=== PATIENT | male | born 1940 | race Caucasian/White ===

== ENCOUNTER 2017-03-12 06:22 | Inpatient (IN) | payer OTHER ==
[2017-02-12 08:12] VITALS: BMI 32.0
--- NOTE | 2017-02-12 08:47 | PAT Medication Instructions ---
Service Date Feb 12, 2017. Current Home Medication List Aspirin (Aspirin Adult Low Strengt), 81 MG PO QPM Carvedilol (Carvedilol), 25 MG PO BID Ferrous Gluconate (Ferrous Gluconate), 324 MG PO BID Furosemide (Lasix), 20 MG PO BID Gabapentin (Neurontin), 300 MG PO QAM PRN for prn Hydrocodone/Acetaminophen 5MG/325MG (Layton 5MG/325MG), 1 TABLET PO BID PRN for Pain Omeprazole (Prilosec), 20 MG PO QAM Quinapril Hcl (Accupril *), 20 MG PO BID Silodosin (Rapaflo), 1 CAP PO QPM Simvastatin (Zocor), 10 MG PO QPM Warfarin Sodium (Coumadin), 4 MG PO QPM Medication Instructions For Your Scheduled Surgery - Check with surgeon/prescribing physician for instructions: Warfarin Sodium (Coumadin), 4 MG PO QPM - Hold the following medications 48 hours prior to surgery: Furosemide (Lasix), 20 MG PO BID Ferrous Gluconate (Ferrous Gluconate), 324 MG PO BID Quinapril Hcl (Accupril *), 20 MG PO BID - Take the following medications the morning of surgery with a sip of water: Carvedilol (Carvedilol), 25 MG PO BID Gabapentin (Neurontin), 300 MG PO QAM PRN for prn (if needed) Hydrocodone/Acetaminophen 5MG/325MG (Layton 5MG/325MG), 1 TABLET PO BID PRN for Pain (okay to take up to 4 hours prior to surgery if needed) Omeprazole (Prilosec), 20 MG PO QAM - Hold the following medications the night before surgery: Quinapril Hcl (Accupril *), 20 MG PO BID - Take the following medications as scheduled the night before surgery: Simvastatin (Zocor), 10 MG PO QPM Silodosin (Rapaflo), 1 CAP PO QPM Gabapentin (Neurontin), 300 MG PO QAM PRN for prn (if needed) Furosemide (Lasix), 20 MG PO BID Ferrous Gluconate (Ferrous Gluconate), 324 MG PO BID Aspirin (Aspirin Adult Low Strengt), 81 MG PO QPM Hydrocodone/Acetaminophen 5MG/325MG (Layton 5MG/325MG), 1 TABLET PO BID PRN for Pain (if needed) If you have any questions please call us at [phone] or [phone] or [phone]
--- NOTE | 2017-02-12 09:19 | DIAGNOSTIC IMAGING REPORT ---
CHEST PREADMISSION(PA/LAT) HISTORY: 76 years-old Male preadmission exam. COMPARISON: Portable chest radiograph 12/06/2014 TECHNIQUE: PA and lateral views of the chest FINDINGS: Cardiac silhouette is mildly enlarged, unchanged. There is mild atherosclerosis of the aorta without pneumothorax, pleural effusion or focal airspace consolidation. No overt pulmonary edema. Nodular opacity at the level of the right lung base suggests nipple shadow. The bones are mildly demineralized. Left shoulder hemiarthroplasty noted. Prior median sternotomy. Cholecystectomy clips are present. Posterior trudy and screw fusion of the thoracolumbar spine is partially imaged. Multilevel degenerative changes of the spine are seen. IMPRESSION: No acute cardiopulmonary process. The above report was generated using voice recognition software. It may contain grammatical, syntax or spelling errors. Electronically signed by: Kang Hernandez M.D. 02/12/2017 9:18 AM Dictated Date/Time: 02/12/2017 9:16 AM
[2017-02-12 09:52] LABS: INR 1.6 (0.9-1.1); PARTIAL THROMBOPLASTIN RATIO 1.4; PROTHROMBIN TIME (PATIENT) 17.3 SECONDS (9.0-12.0)
[2017-02-12 10:26] LABS: BUN/CREATININE RATIO 21.7 (10-20); CREATININE 1.4 mg/dl (0.60-1.40); POTASSIUM 4.4 mmol/L (3.5-5.1)
[2017-02-12 10:40] LABS: HEMATOCRIT 41.8 % (42-52); MEAN CELL VOLUME 96.3 fL (80-100); MEAN CORPUSCULAR HEMOGLOBIN 32.5 pg (25-34); MEAN CORPUSCULAR HGB CONC 33.7 g/dl (32-36); MEAN PLATELET VOLUME 12.3 fL (7.4-10.4); PLATELET COUNT 88 K/uL (130-400); RED BLOOD COUNT 4.34 M/uL (4.7-6.1); WHITE BLOOD COUNT 4.87 K/uL (4.8-10.8)
[2017-02-12 10:41] LABS: BASO ABS # 0.05 K/uL (0-0.2); COMPLETE YES; EOS % 2.5 %; IG% 0.2 %; LYMPH % 32.2 %; LYMPH ABS # 1.57 K/uL (1.2-3.4); MONO % 12.3 %; NEUT % 51.8 %; PLT ESTIMATE DECREASED
--- NOTE | 2017-03-08 08:25 | HISTORY & PHYSICAL EXAMINATION ---
DATE OF ADMISSION: 03/12/2017 CHIEF COMPLAINT: Bilateral knee pain and discomfort, left side greater than right. HISTORY OF PRESENT ILLNESS: The patient is a 76-year-old gentleman from [place] who has got a long history of bilateral knee pain and discomfort. He is a retired [employer] employee. He has been treated with extensive conservative care over the years including medicines and injections. The shots have not helped recently at all. He does have a history of multiple back surgeries as well and continues to be bothered by back pain. He describes chronic pain in both knees. The left side is worse than the right. The more he walks, the more it hurts. He limps all day but worse worse as the day goes on. He gets swelling in both knees. He would like to have his left knee replaced. PAST MEDICAL HISTORY: 1. Hypertension. 2. Elevated cholesterol. 3. Atrial fibrillation on Coumadin. 4. Congestive heart failure. 5. Gastroesophageal reflux disease. 6. History of melanoma 7. BPH. PAST SURGICAL HISTORY: Include: 1. Back surgery x5. 2. Cholecystectomy. 3. Shoulder surgery. ALLERGIES: None. CURRENT MEDICINES: 1. Aspirin 81 mg daily. 2. Carvedilol 25 mg twice a day. 3. Quinapril 20 mg twice a day. 4. Simvastatin 10 mg a day. 5. Omeprazole 20 mg a day. 6. Iron 325 twice a day. 7. Coumadin 4 mg a day. 8. Rapaflo 8 mg a day for BPH. 9. Furosemide 20 mg twice a day. 10. Gabapentin 300 mg. 11. Hydrocodone 2 a day for his back. SOCIAL HISTORY: A 76-year-old male. He is from [place]. He is . FAMILY HISTORY: Noncontributory. REVIEW OF SYSTEMS: Significant cardiac history including atrial fibrillation on Coumadin. He also has a history of heart failure. He is followed by Dr. Calero. FAMILY HISTORY: No history of DVT or PE. PHYSICAL EXAMINATION: GENERAL: Physical examination reveals is a pleasant elderly male. He looks to be in reasonably good health. HEAD, EYES, EARS, NOSE, AND THROAT EXAMINATION: Benign. NECK: Supple. No lymphadenopathy. LUNGS: Clear to auscultation. HEART: Has an irregularly irregular rhythm. No murmurs. ABDOMEN: Soft, nontender, nondistended. EXTREMITY EXAMINATION: Grossly neurovascularly intact except as follows: Examination of both knees reveals the patient walks with a waddling gait. He has varus alignment to both knees. He has got bony hypertrophy medially. Range of motion is pretty symmetrically about 5 degrees short of full extension and 20 degrees of flexion. He has got some mild edema in both legs. No pain with hip motion. X-RAYS: X-rays of both knees reveal advanced bilateral knee DJD. He has got complete loss of his medial joint space. The left side is a bit worse than the right. ASSESSMENT: A 76-year-old male with advanced bilateral knee degenerative joint disease, unresponsive to conservative treatment. He has had multiple back surgeries and also some underlying cardiac disease. He is strongly desiring to have his knees replaced. PLAN: We are going to take him to the operating room and do a left total knee replacement. The risks and benefits of this procedure were explained to the patient including but not limited to DVT, PE, , infection, neurological injury, neurovascular injury, bleeding problem, pain, limited range of motion, stiffness, failure to relieve his symptoms, incomplete relief of symptoms, need for further surgery in the future, fracture, leg length inequality, nerve palsy, etc. The patient understands and desires to proceed. Informed consent was obtained. He has stopped his Coumadin 5 days preop, hold the quinapril the morning of surgery. He will take his carvedilol the morning surgery. We will need stat PT and INR the a.m. of surgery. We will likely have one of the cardiologists here follow him in the hospital. He is hoping to be discharged to home using [facility] with his 's assistance.
[~2017-03-12] VITALS: Ht 172.7 cm; Wt 95.5 kg
[2017-03-12] VITALS (16 sets, daily range): BP systolic 109–130; BP diastolic 53–87; PULSE 73–93; TEMP 36.5–36.8; O2SAT 95–100; Ht 172.7 cm; Wt 95.5 kg
[~2017-03-12 06:22] MED LIST: ACC10 PO; ACETAMINOPHEN 500 MG TAB PO SCH; ASPI-321 PO; BUPIVACAINE LIPOSOME 266 MG, BUPIVACAINE/EPINEPHRINE INJ 50 ML, SODIUM CHLORIDE 0.9% PF... INFIL SCH; CEFAZOLIN 2000 MG/60 ML D5W 60 ML IV SCH; CRG25 PO; FAMOTIDINE 20 MG TAB PO SCH; FERR325T18 PO; FURO-85 PO; GABA-113 PO; GABAPENTIN 300 MG CAP PO SCH; HYDR-5688 PO; LACTATED RINGER'S 1000ML 1,000 ML IV SCH; LACTATED RINGER'S 1000ML 500 ML IV ONE; LACTATED RINGER'S 1000ML IV SCH; METOCLOPRAMIDE HCL 10 MG TAB PO SCH; PRLSR20 PO; SCOPOLAMINE 1.5 MG TDSY TD SCH; SILO8CAP PO; SIMV10TA2 PO; TRANEXAMIC ACID INJ 1,000 MG in SODIUM CHLORIDE 0.9% 100ML 100 ML IV SCH; WARF2TAB PO
[2017-03-12] MEDS ORDERED: MIDAZOLAM HCL 1 MG/ML 2ML VIAL ONE (06:24)
[2017-03-12] MEDS ORDERED: LIDOCAINE HCL 2% 2 ML VIAL (20MG/ML) ONE (06:24)
[2017-03-12] MEDS ORDERED: FENTANYL CITRATE INJ 50 MCG/1 ML 2 ML VIAL ONE ×2 (06:24→08:41)
[2017-03-12] MEDS ORDERED: ONDANSETRON INJ 2 MG/ML 2 ML VIAL ONE (06:24)
[2017-03-12] MEDS ORDERED: PROPOFOL IV EMULSION 10 MG/ML 20 ML VIAL IV ONE ×2 (06:24→08:36)
[2017-03-12] MEDS ORDERED: BUPIVACAINE 0.5 % 5 MG/1 ML PF 10ML VIAL ONE (06:31)
[2017-03-12] MEDS ORDERED: BUPIVACAINE 0.25% 30 ML VIAL ONE (06:31)
--- NOTE | 2017-03-12 06:47 | History & Physical Bridge Note ---
H&P Re-Evaluation Bridge Note: I have examined the patient, reviewed the History & Physical and in the interval since the performance of the History & Physical I have noted the following changes of clinical significance: No changes noted
[2017-03-12] MEDS ORDERED: FENTANYL CITRATE INJ 50 MCG/1 ML 2 ML VIAL IV PRN (07:45)
[2017-03-12] MEDS ORDERED: EpHEDrine SULFATE INJ 50 MG/ML AMP IV PRN (07:45)
[2017-03-12] MEDS ORDERED: ATROPINE SULFATE 0.1 MG/ML 5ML SYR IV PRN (07:45)
[2017-03-12] MEDS ORDERED: ONDANSETRON INJ 2 MG/ML 2 ML VIAL IV PRN ×2 (07:45→11:15)
[2017-03-12 07:52] LABS: HEMATOCRIT 38.5 % (42-52); MEAN CELL VOLUME 94.8 fL (80-100); MEAN CORPUSCULAR HEMOGLOBIN 32.5 pg (25-34); MEAN PLATELET VOLUME 10.7 fL (7.4-10.4); PLATELET COUNT 107 K/uL (130-400); RED BLOOD COUNT 4.06 M/uL (4.7-6.1); WHITE BLOOD COUNT 5.52 K/uL (4.8-10.8)
[2017-03-12 07:57] LABS: MEAN CORPUSCULAR HGB CONC 34.3 g/dl (32-36)
[2017-03-12 08:01] LABS: INR 1.3 (0.9-1.1); PARTIAL THROMBOPLASTIN RATIO 1.4
[2017-03-12] MEDS ORDERED: SUCCINYLCHOLINE CHLORIDE 20 MG/ML 10 ML VIAL IV ONE (08:36)
[2017-03-12] MEDS ORDERED: ROCURONIUM BROMIDE 10 MG/ML 5 ML VIAL IV ONE (08:38)
[2017-03-12] MEDS ORDERED: BACITRACIN 50000 UNIT VIAL ONE (09:01)
[2017-03-12] MEDS ORDERED: SODIUM CHLORIDE 0.9% PF 50 ML VIAL ONE (09:01)
[2017-03-12] MEDS ORDERED: BUPIVACAINE/EPINEPHRINE 0.25% 1:200,000 30 ML VIAL ONE (09:01)
[2017-03-12] MEDS ORDERED: BUPIVACAINE LIPOSOME 1/3% 266 MG/20 ML VIAL INFIL ONE (09:01)
[2017-03-12] MEDS ORDERED: EpHEDrine SULFATE INJ 50 MG/ML AMP ONE (09:54)
[2017-03-12] MEDS ORDERED: HYDROmorphone INJ 2 MG/ML SYR/VIAL ONE (09:54)
[2017-03-12] MEDS ORDERED: PHENYLEPHRINE HCL INJ 10 MG/ML VIAL ONE (09:54)
[2017-03-12] MEDS ORDERED: SODIUM CHLORIDE 0.9% INJ 10 ML VIAL ONE (09:54)
[2017-03-12] MEDS ORDERED: ETOMIDATE 2 MG/ML 20 ML VIAL IV ONE (10:29)
--- NOTE | 2017-03-12 11:03 | [facility] Post Operative Brief Note ---
Immediate Operative Summary Operative Date Mar 12, 2017. Pre-Operative Diagnosis Left Knee Advanced Degenerative Joint Disease Post-Operative Diagnosis Left Knee Advanced Degenerative Joint Disease Procedure(s) Performed Left Total Knee Arthroplasty Surgeon Dr. Mayer Clinical Recruiter Surgeon(s) MERRY Cobian Estimated Blood Loss 50 ml Findings Left Knee DJD Specimens A. Left Knee Bone and Tissue Drains HMV Left Knee Anesthesia General Complication(s) None Disposition Recovery Room / PACU
[2017-03-12] MEDS ORDERED: ZOLPIDEM TARTRATE 5 MG TAB PO PRN (11:15)
[2017-03-12] MEDS ORDERED: GABAPENTIN 300 MG CAP PO PRN (11:15)
[2017-03-12] MEDS ORDERED: BISACODYL 10 MG SUPP PR PRN (11:15)
[2017-03-12] MEDS ORDERED: METOCLOPRAMIDE HCL INJ 5 MG/ML 2 ML VIAL IV PRN (11:15)
[2017-03-12] MEDS ORDERED: SILVER SULFADIAZINE 1% CR 50 GM JAR EXT PRN (11:15)
[2017-03-12] MEDS ORDERED: MAGNESIUM HYDROXIDE SUSP 30 ML UDC PO PRN (11:15)
[2017-03-12] MEDS ORDERED: ALUMINUM/MAGNESIUM/SIMETH (MAALOX MAX) 30 ML UDC PO PRN (11:15)
[2017-03-12] MEDS ORDERED: NO NSAIDS SCH (11:15)
--- NOTE | 2017-03-12 12:04 | DIAGNOSTIC IMAGING REPORT ---
L KNEE 1 OR 2 VIEWS ROUTINE HISTORY: 76 years-old Male AP/LATERAL IN PACU LEFT KNEE status post left knee arthroplasty. Degenerative joint disease of the left knee. COMPARISON: Left knee radiographs 01/25/2017 TECHNIQUE: AP and lateral views of the left knee. FINDINGS: There is been recent total knee arthroplasty with patellar resurfacing. Alignment is satisfactory without postoperative complication identified. Expected postsurgical soft tissue swelling and deep tissue air is noted about the knee with surgical drain in place. Midline anterior skin silvia are seen. No retained foreign body identified. IMPRESSION: Status post left knee total joint arthroplasty and patellar resurfacing without complication. The above report was generated using voice recognition software. It may contain grammatical, syntax or spelling errors. Electronically signed by: Kang Hernandez M.D. 03/12/2017 12:03 PM Dictated Date/Time: 03/12/2017 12:02 PM
--- NOTE | 2017-03-12 12:28 | Progress Note ---
Progress Note Date of Service Mar 12, 2017. Progress Note Arterial line placed in ASU II in preparation for total knee replacement with Dr. Mayer. Right wrist prepped with chlorhexidine and draped with sterile towels. Site infiltrated with 1 cc of 2% lidocaine. 20 G angiocath placed under sterile technique utilizing sterile gloves, surgical hats and masks. Catheter threaded using seldinger technique with return of pulsatile, bright red blood. Site covered with occlusive dressing and taped in place. Waveform consistent with correct arterial placement. After placement, fingers of right hand had normal perfusion. Patient tolerated procedure well without complications.
--- NOTE | 2017-03-12 12:30 | Anesthesiology Progress Note ---
Anesthesia Post Op Note Date & Time Mar 12, 2017 at 12:29 Vital Signs Pain Intensity: 0 Vital Signs Past 12 Hours Date Time Temp Pulse Resp B/P (MAP) Pulse Ox O2 Delivery O2 Flow Rate FiO2 03/12/17 12:23 101 18 03/12/17 12:23 115 18 95 03/12/17 12:21 113/74 03/12/17 12:18 108 15 95 03/12/17 12:18 87 15 03/12/17 12:16 118/82 03/12/17 12:15 36.1 100 18 118/82 95 Nasal Cannula 3 03/12/17 12:13 106 16 95 03/12/17 12:13 97 16 03/12/17 12:12 100 17 95 03/12/17 12:12 92 17 03/12/17 12:11 107/85 03/12/17 12:07 99 15 96 03/12/17 12:07 93 15 03/12/17 12:06 116/72 03/12/17 12:02 103 17 03/12/17 12:02 109 17 96 03/12/17 12:01 115/80 03/12/17 11:58 122/59 03/12/17 11:57 98 17 03/12/17 11:57 104 17 95 03/12/17 11:52 110 16 03/12/17 11:52 105 16 117/81 97 03/12/17 11:47 109 16 03/12/17 11:47 121 16 96 03/12/17 11:46 104/77 03/12/17 11:42 107 17 97 03/12/17 11:42 103 17 03/12/17 11:41 109/71 03/12/17 11:37 84 15 03/12/17 11:37 109 15 96 03/12/17 11:36 102/77 03/12/17 11:32 116 15 96 03/12/17 11:32 109 15 03/12/17 11:31 92/73 03/12/17 11:27 90 13 03/12/17 11:27 110 13 96 03/12/17 11:26 96/73 03/12/17 11:23 96/78 03/12/17 11:22 120 12 95 03/12/17 11:22 104 12 03/12/17 11:22 36.5 115 10 96/58 95 Oxymask 12 03/12/17 06:50 36.5 93 18 116/76 98 Room Air Notes Mental Status: alert / awake / arousable, participated in evaluation Pt Amnestic to Procedure: Yes Nausea / Vomiting: adequately controlled Pain: adequately controlled Airway Patency, RR, SpO2: stable & adequate BP & HR: stable & adequate Hydration State: stable & adequate Anesthetic Complications: no major complications apparent Anesthetic Complications: Patient hemodynamically stable during his stay in PACU. Arterial line removed prior to discharge from PACU. No beds available in PCU so patient transferred to ICU due to significant cardiac disease and need for perioperative monitoring.
[2017-03-12] MEDS ORDERED: D5W AND 1/2NSS + 20MEQ KCL 1,000 ML IV SCH (14:00)
[2017-03-12] MEDS: ACETAMINOPHEN 500 MG TAB PO SCH ×2 (14:30→20:54)
[2017-03-12] MEDS ORDERED: WARFARIN SOD 6 MG TAB PO SCH (16:00)
[2017-03-12] MEDS: CHECK SCOPOLAMINE PATCH PLACEMENT SCH ×2 (16:25→23:30)
[2017-03-12] MEDS: FERROUS GLUCONATE 324 MG TAB PO SCH (16:28)
[2017-03-12] MEDS ORDERED: FUROSEMIDE 20 MG TAB PO SCH (17:00)
[2017-03-12] MEDS: CEFAZOLIN IV 2,000 MG in DEXTROSE 5% 50ML 50 ML IV SCH (17:41)
--- NOTE | 2017-03-12 18:04 | Cardiology Consultation ---
Cardiology Consultation Date of Consultation: Mar 12, 2017. Requesting Physician: Moreno Reason for Consultation: CAD Pt evaluation today including: conversation w/ patient, physical exam, chart review, lab review, review of studies, review of inpatient medication list History of Present Illness The patient is 68-year-old gentleman with an extensive cardiac history to include coronary artery disease, ischemic cardiomyopathy and atrial fibrillation. He is currently followed by an outside second watch sergeant and has recently undergone several studies leading up to a knee replacement performed today. The patient states that for the past several months he has had limited activity due to significant knee pain. Prior to that he was fairly active. He he does describe an element of mild dyspnea with exertion but not limiting. He did not describe any exertional chest discomfort in the past year. He is generally not aware of any palpitations or rapid heartbeats. He is not describing lightheadedness or dizziness and cannot recall having suffered a syncopal episode. He generally does not have any swelling in his lower extremities. He does not describe orthopnea or paroxysmal nocturnal dyspnea. At the bedside currently he claims to be feeling well. He has minimal pain at the operative site. He denies any sense of palpitation. He is not reporting any chest pain. He denies significant breathing trouble. His appetite appears to be good he is tolerating his dinner. The patient has remote history of coronary bypass grafting having undergone a single-vessel bypass in 1998. He recalls hunting and having significant chest pain while at [place]. An evaluation for his exertional chest discomfort revealed significant disease and he underwent the aforementioned CHAMBERLAIN to LAD bypass. He cannot recall similar symptoms since that time. Past Medical/Surgical History 1. Coronary artery disease status post CHAMBERLAIN to LAD in 1998 Melanoma status post resection Thoracic and cervical spine disease Ischemic cardiomyopathy with last ejection fraction estimated at 20-25 percent Mitral regurgitation mild MGUS with thrombocytopenia Atrial fibrillation permanent Hypertension Surgical history Right inguinal hernia repair 2007 Chamberlain to LAD coronary bypass graft in 1998 Spinal surgery in 2001, 2009 and 2012 Family History FH: HTN (hypertension) Social History Smoking Status: Never Smoker History of Alcohol Use: No Review of Systems Constitutional: + see HPI Respiratory: + see HPI Cardiac: + see HPI Abdomen: + see HPI Male : + see HPI Neurologic: + see HPI Heme: + see HPI Endo: + see HPI Skin: + see HPI All Other Systems: Reviewed and Negative Allergies Coded Allergies: Adhesives (Verified Allergy, Mild, STERI-STRIPS, RASH, 03/12/17) NO KNOWN DRUG ALLERGIES (Verified Allergy, Unknown, nkda, 03/12/17) Medications Current Inpatient Medications Medications (Trade) Dose Ordered Sig/Ramin Route Start Time Stop Time Status Last Admin Dose Admin Cefazolin Sodium 60 ml @ 100 mls/hr PREOP IV 03/12/17 06:00 03/12/17 18:00 03/12/17 09:12 100 MLS/HR Acetaminophen (Tylenol Tab) 1,000 mg PREOP PO 03/12/17 06:00 03/12/17 18:00 03/12/17 07:29 1,000 MG Bupivacaine Liposome 266 mg/ Bupivacaine HCl/ Epinephrine Bitart 50 ml/ Sodium Chloride 30 ml/Syringe 100 ml @ 0 mls/hr 06 INFIL 03/12/17 06:00 03/12/17 18:00 03/12/17 09:58 100 MLS/HR Famotidine (Pepcid Tab) 20 mg PREOP PO 03/12/17 06:00 03/12/17 18:00 03/12/17 07:30 20 MG Gabapentin (Neurontin Cap) 300 mg PREOP PO 03/12/17 06:00 03/12/17 18:00 03/12/17 07:28 300 MG Metoclopramide HCl (Reglan Tab) 10 mg PREOP PO 03/12/17 06:00 03/12/17 18:00 03/12/17 07:28 10 MG Miscellaneous (Remove Transderm-Scop Patch) 1 ea Q72H N/A 03/15/17 06:00 03/15/17 06:01 Miscellaneous Information (Check Scopolamine Patch Placement) 1 ea QS N/A 03/12/17 16:00 03/15/17 05:59 03/12/17 16:25 1 EA Potassium Chloride/Dextrose/ Sod Cl 1,000 ml @ 100 mls/hr Q10H IV 03/12/17 14:00 03/13/17 11:10 03/12/17 14:30 100 MLS/HR Cefazolin Sodium 2000 mg/Dextrose 60 ml @ 100 mls/hr Q8H IV 03/12/17 18:00 03/13/17 02:35 03/12/17 17:41 100 MLS/HR Miscellaneous Medication (No Nsaids) 1 ea UD N/A 03/12/17 11:15 04/11/17 11:14 Acetaminophen (Tylenol Tab) 1,000 mg Q8 PO 03/12/17 14:00 04/11/17 13:59 03/12/17 14:30 1,000 MG Magnesium Hydroxide (Milk Of Magnesia Susp) 30 ml Q6H PRN PO 03/12/17 11:15 04/11/17 11:14 Bisacodyl (Dulcolax Supp) 10 mg DAILY PRN VT 03/12/17 11:15 04/11/17 11:14 Senna (Senokot Tab) 17.2 mg HS PO 03/12/17 21:00 04/11/17 20:59 Docusate Sodium (coLACE CAP) 100 mg BID PO 03/12/17 21:00 04/11/17 20:59 Al Hydrox/Mg Hydrox/Simethicone (Maalox Max Susp) 15 ml Q4H PRN PO 03/12/17 11:15 04/11/17 11:14 Zolpidem Tartrate (Ambien Tab) 5 mg HSZ PRN PO 03/12/17 11:15 04/11/17 11:14 Multivitamins (Multivitamin Tab) 1 tab QAM PO 03/13/17 09:00 04/12/17 08:59 Ondansetron HCl (Zofran Inj) 4 mg Q6H PRN IV 03/12/17 11:15 04/11/17 11:14 Metoclopramide HCl (Reglan Inj) 10 mg Q6H PRN IV 03/12/17 11:15 04/11/17 11:14 Ferrous Gluconate (Ferrous Gluconate Tab) 324 mg TIDM PO 03/12/17 16:30 04/11/17 16:29 03/12/17 16:28 324 MG Pantoprazole Sodium (Protonix Tab) 40 mg QAM PO 03/13/17 09:00 04/12/17 08:59 Silver Sulfadiazine (Silvadene 1% Crm 50GM Jar) 1 appln BID PRN EXT 03/12/17 11:15 04/11/17 11:14 Tamsulosin HCl (Flomax Cap) 0.4 mg QAM PRN PO 03/12/17 11:15 04/11/17 11:14 Tramadol HCl (Ultram Tab) 1 tablet for pain rating... Q4H PRN PO 03/12/17 11:15 04/11/17 11:14 Aspirin (Ecotrin Tab) 81 mg QPM PO 03/12/17 21:00 04/11/17 20:59 Carvedilol (Coreg Tab) 25 mg BID PO 03/12/17 21:00 04/11/17 20:59 Furosemide (Lasix Tab) 20 mg BID17 PO 03/12/17 17:00 04/11/17 16:59 03/12/17 16:28 20 MG Gabapentin (Neurontin Cap) 300 mg QAM PRN PO 03/12/17 11:15 04/11/17 11:14 Simvastatin (Zocor Tab) 10 mg QPM PO 03/12/17 21:00 04/11/17 20:59 Enalapril Maleate (Vasotec Tab) 20 mg BID PO 03/12/17 21:00 04/11/17 20:59 Miscellaneous Information (Order Awaiting Action) 1 ea QS N/A 03/12/17 16:00 04/11/17 15:59 Warfarin Sodium (Coumadin Tab) 6 mg TODAY@1600 PO 03/12/17 16:00 03/12/17 18:00 03/12/17 16:28 6 MG Hydromorphone HCl (Dilaudid Inj) 0.5 mg Q1H PRN IV 03/12/17 11:15 03/26/17 11:14 Physical Exam Vital Signs Past 12 Hours Date Time Temp Pulse Resp B/P (MAP) Pulse Ox O2 Delivery O2 Flow Rate FiO2 03/12/17 16:30 90 22 98 03/12/17 16:01 79 15 110/87 (95) 98 03/12/17 16:00 73 13 98 03/12/17 15:31 91 14 126/82 (97) 95 03/12/17 15:30 90 15 96 03/12/17 15:30 36.5 89 20 109/77 (88) 96 Nasal Cannula 2.0 03/12/17 15:30 Nasal Cannula 2.0 03/12/17 15:16 83 4 109/77 (88) 97 03/12/17 15:01 83 14 112/74 (87) 99 03/12/17 15:00 81 15 98 03/12/17 14:45 80 18 130/53 (78) 100 Nasal Cannula 4.0 03/12/17 14:30 79 18 129/67 (87) 100 Nasal Cannula 4.0 03/12/17 14:15 77 18 128/55 (79) 99 Nasal Cannula 4.0 03/12/17 13:29 86 18 115/75 (88) 97 Nasal Cannula 4.0 03/12/17 12:23 101 18 03/12/17 12:23 115 18 95 03/12/17 12:21 113/74 03/12/17 12:18 108 15 95 03/12/17 12:18 87 15 03/12/17 12:16 118/82 03/12/17 12:15 36.1 100 18 118/82 95 Nasal Cannula 3 03/12/17 12:13 106 16 95 03/12/17 12:13 97 16 03/12/17 12:12 100 17 95 03/12/17 12:12 92 17 03/12/17 12:11 107/85 03/12/17 12:07 99 15 96 03/12/17 12:07 93 15 03/12/17 12:06 116/72 03/12/17 12:02 103 17 03/12/17 12:02 109 17 96 03/12/17 12:01 115/80 03/12/17 11:58 122/59 03/12/17 11:57 98 17 03/12/17 11:57 104 17 95 03/12/17 11:52 110 16 03/12/17 11:52 105 16 117/81 97 03/12/17 11:47 109 16 03/12/17 11:47 121 16 96 03/12/17 11:46 104/77 03/12/17 11:42 107 17 97 03/12/17 11:42 103 17 03/12/17 11:41 109/71 03/12/17 11:37 84 15 03/12/17 11:37 109 15 96 03/12/17 11:36 102/77 03/12/17 11:32 116 15 96 03/12/17 11:32 109 15 03/12/17 11:31 92/73 03/12/17 11:27 90 13 03/12/17 11:27 110 13 96 03/12/17 11:26 96/73 03/12/17 11:23 96/78 03/12/17 11:22 120 12 95 03/12/17 11:22 104 12 03/12/17 11:22 36.5 115 10 96/58 95 Oxymask 12 03/12/17 06:50 36.5 93 18 116/76 98 Room Air The patient is alert and oriented. Mood and affect appeared normal. He answered all questions appropriately. HEENT: Pupils are equal and reactive to light and accommodation. Extraocular movements are intact. The sclerae are anicteric. Neuro: Cranial nerves intact Neck: Patient's neck is supple. He has palpable carotid pulses bilaterally without bruits on auscultation. There is no evidence of jugular venous distention. The thyroid is not enlarged. Lungs: Clear to auscultation bilaterally. He has good air movement without use of accessory muscles. No rales wheezes or rhonchi. Cardiac: Heart demonstrates an irregular rate and rhythm. Normal S1 and S2. No murmurs on examination. Chest: Well-healed sternotomy scar Pulses: The patient has palpable radial pulses bilaterally that are equal in intensity Extremities: There was no evidence of hypoperfusion. There is no cyanosis or clubbing. There is no edema. Skin: I did not appreciate any rashes on examination today. Two distinct circular surgical lesions on his right upper back Data Laboratory Results: Last 24 Hours Test 03/12/17 07:44 White Blood Count 5.52 K/uL Red Blood Count 4.06 M/uL Hemoglobin 13.2 g/dL Hematocrit 38.5 % Mean Corpuscular Volume 94.8 fL Mean Corpuscular Hemoglobin 32.5 pg Mean Corpuscular Hemoglobin Concent 34.3 g/dl RDW Standard Deviation 45.1 fL RDW Coefficient of Variation 12.9 % Platelet Count 107 K/uL Mean Platelet Volume 10.7 fL Prothrombin Time 14.0 SECONDS Prothromb Time International Ratio 1.3 Activated Partial Thromboplast Time 35.5 SECONDS Partial Thromboplastin Ratio 1.4 Imaging: Chest x-ray did not reveal any acute cardiopulmonary process EKG: Atrial fibrillation with controlled ventricular response Telemetry reviewed: Atrial fibrillation Cardiac catheterization performed on 11/14/2016: Chamberlain to LAD was widely patent. 60 percent D1 lesion. Right coronary with mid 60 percent stenosis. FFR was performed on the right coronary stenosis. The measurement was 0.92. Echocardiogram performed 11/06/2016. Ejection fraction 20-25 percent. Mild mitral regurgitation Assessment & Plan 1. Coronary artery disease: Patient has not had recurrence of his index angina since his bypass in 1998. He had a recent catheterization which demonstrated patency of the graft and no other obstructive lesions. In the perioperative period should be re-initiated on his standard therapy which includes low-dose aspirin, low-dose simvastatin and carvedilol. Efforts should be made to avoid significant anemia, hypotension, hypertension or hypoxia. 2. Valvular heart disease: Patient has mild mitral regurgitation. This will not likely pay factor in his hospitalization. 3. Atrial fibrillation: This is longstanding in nature. He has no symptoms related to the arrhythmia. He has adequate rate control on his usual dose of carvedilol. He should be re-initiated on his systemic anticoagulation as soon as this is deemed appropriate by the surgical team. 4. Ischemic cardiomyopathy: Patient has a severe ischemic cardiomyopathy. There did not appear to be any options for revascularization at his catheterization in October. He is on a medical regimen which currently consists of carvedilol and an Kishore inhibitor. He takes 40 milligrams of Lasix daily him this can be continued in the perioperative period. Efforts should be made to avoid significant over hydration. I would suspect that once the patient is eating adequately any intravenous fluids can be discontinued. We will need to monitor him closely for evidence of pulmonary vascular congestion most likely manifest by an element of dyspnea or need for supplemental oxygen. Going forward, the patient could be considered a candidate for an aldosterone antagonist and Entresto. In the absence of notable improvement of his LV function he would be a good candidate for prophylactic ICD.
[2017-03-12] MEDS: SENNA 8.6 MG TAB PO SCH (20:53)
[2017-03-12] MEDS: CARVEDILOL 25 MG TAB PO SCH (20:53)
[2017-03-12] MEDS: ENALAPRIL MALEATE 10 MG TAB PO SCH (20:53)
[2017-03-12] MEDS: ASPIRIN 81 MG ECTAB PO SCH (20:53)
[2017-03-12] MEDS: DOCUSATE SODIUM 100 MG CAP PO SCH (20:53)
[2017-03-12] MEDS: SIMVASTATIN 10 MG TAB PO SCH (20:54)
[2017-03-12] MEDS: HYDROmorphone INJ 0.5 MG/0.5 ML SYR IV PRN (20:55)
--- NOTE | 2017-03-12 20:56 | PROGRESS NOTE ---
DATE: 03/12/2017 SUBJECTIVE: A 76-year-old gentleman postop from a left knee replacement. He is in the ICU as he did not have any telemetry beds available. He is doing well. Not having much knee pain. No chest pain or shortness of breath. Not feeling dizzy or lightheaded. PHYSICAL EXAMINATION: VITAL SIGNS: Temperature 36.5. Vital signs stable. GENERAL: Reveals a healthy pleasant elderly male. He is sitting up in bed, looks pretty comfortable. EXTREMITIES: Examination of the left leg reveals it to be well aligned. Dressing is clean, dry, and intact. He can dorsiflex and plantarflex his foot appropriately. He is neurologically intact. X-RAYS: X-rays of the left knee from recovery room reviewed. It shows a cemented posterior stabilized total knee arthroplasty. The components are in good position. No signs of problems. ASSESSMENT: A 76-year-old gentleman with a significant cardiac history as well as chronic thrombocytopenia with a postop from left knee replacement. He appears to have been medically pretty stable at the moment. His pain is controlled. He is neurologically intact. Not having any cardiac symptoms. PLAN: 1. DVT prophylaxis including thigh-high TEDs, SCDs and we will restart his Coumadin. The goal will be to keep an INR between 2 and 3. 2. PT/OT. Weight bear as tolerated. Left total knee protocol. 3. Pain control. Doing well with current pain regimen. We need to really limit narcotics to avoid confusion. 4. IV antibiotics x24 hours. 5. Chronic thrombocytopenia. We will follow his platelets daily. He does have a drain in place which we will take out in a day or two. 6. Cardiac history. We have cardiology following. He has resumed all his cardiac meds. He is on Coumadin for AFib and we have restarted that this evening with a bolus. 7. Disposition: He is planning to be discharged to home with Home health once medically stable.
--- NOTE | 2017-03-12 21:29 | OPERATIVE REPORT ---
DATE OF OPERATION: 03/12/2017 SURGEON: Rolf Mayer MD BLANKET WEAVER: MERRY Armenta PREOPERATIVE DIAGNOSIS: Left knee degenerative joint disease. POSTOPERATIVE DIAGNOSIS: Same. PROCEDURE PERFORMED: Left cemented posterior stabilized total knee arthroplasty. COMPLICATIONS: None. ESTIMATED BLOOD LOSS: 50 mL. FLUID REPLACEMENT: 1100 mL crystalloid fluid replacement. TOURNIQUET TIME: 58 minutes at 300 mmHg. ANESTHESIA: General with an adductor canal block. DRAINS: Hemovac drain, left knee. OPERATIVE INDICATIONS: The patient is a 76-year-old male who has a long history of bilateral knee pain and discomfort. He has been treated with conservative care over the years which has become less successful. X-rays show progressive knee arthritis. He elected to proceed with left total knee arthroplasty. OPERATIVE FINDINGS: Operative findings revealed advanced left knee DJD. He had extensive grade 4 changes and eburnation of the medial femoral condyle and medial tibial plateau. A varus deformity to his knee with a flexion contracture of about 10 degrees. He had a large knee joint effusion. The lateral and patellofemoral compartments were showed age-related changes in up to grade 2-3 changes but nothing more severe. OPERATIVE IMPLANTS: Operative implants consisted of: 1. Biomet Vanguard size 72.5 left posterior stabilized femoral component. 2. Biomet size 75 tibial tray. 3. A 10 mm posterior stabilized polyethylene insert. 4. A 31 x 8 all poly patella. OPERATIVE PROCEDURE: The patient was taken to the operating room, identified and placed on the operating table in supine position. All contact areas were appropriately padded. IV antibiotics were provided by anesthesia team. A general anesthetic was implemented by anesthesia team. An adductor canal block had been provided in the holding area. General anesthetic was implemented due to his low platelet level and not completely corrected INR and history of multiple back surgeries in the past. A left thigh tourniquet was then placed. The left lower extremity was then prepped and draped in the usual sterile fashion. Left leg was elevated and exsanguinated with Esmarch and tourniquet was placed at 300 mmHg. An anterior approach to the left knee was then performed through a longitudinal incision centered over the patella. Sharp dissection was carried through the subcutaneous tissues down to the level of the extensor mechanism. Medial parapatellar arthrotomy incision was made. Some subperiosteal dissection was carried out medially. The fat pad was resected from beneath the patellar tendon. The lateral patellofemoral ligament was released. The patella was everted and the knee was flexed. The osteophytes were taken off the distal femur. The ACL and PCL were then released from the distal femur and the tibia subluxated anteriorly. The external tibial alignment jig was then placed in the anterior face of the tibia and adjusted 16 mm medially. Proximal tibial cut was made, essentially flushed with the most deficient aspect of the posteromedial tibial plateau. Some osteophytes were taken off medial and posteromedially. Tibia was sized to a size 75. Attention was then drawn to the femur. The distal femur was entered with a sharp drill bit. Intramedullary canal was suctioned. A left 6 degree valgus cutting guide was placed. Distal femoral cutting block was pinned in place. Distal femoral cut was made to take an additional 3 mm of bone off the distal femur. The femur was then sized to a size 72.5. We did downsize this slightly. The AP cutting block was pinned parallel to the epicondylar axis, which was 3 degrees of external rotation. The anterior cut, anterior chamfer, posterior cut, posterior chamfer cuts were made. Box cutting guide was placed and adjusted slightly lateral and the box cut was made. The knee was flexed. The remnants of the medial and lateral menisci were excised. The osteophytes were taken off the posterior aspect of the femur. Trial femoral component was placed. Tibial tray was pinned in maximum external rotation and drill and stem punch were used to create defect in proximal tibia for the tibial tray. The knee was then trialed and the 10 mm insert fit most appropriately. Attention was then drawn to the patella. The patella was cleaned of all soft tissues. Patella thickness measured 23 mm, cut down to 13, it was sized to a size 31 patella. Lug holes were drilled for the 31 patella. Lateral osteophyte was removed. Patellar button was placed. Knee was taken through range of motion and the patella tracked nicely with no thumbs test. Attention was then drawn toward placement of permanent components. All trial components were removed. A bone plug was placed in the distal femur to limit blood loss. A double batch of Palacos G cement was mixed. A size 72.5 left posterior stabilized femoral component, size 75 tibial tray, 10 mm posterior stabilized polyethylene insert, and a 31 x 8 all poly patella then cemented in place. Knee was brought out into full extension until cement hardened. A final cement check was then performed. Pericapsular tissues were injected with a total of 100 mL of a combination of 20 mL of Exparel, 30 mL of normal saline, and 50 mL of 0.25% Marcaine with epinephrine. The patient did receive 1 gram of tranexamic acid preoperatively and our plan is to get no further tranexamic acid. I used this somewhat because of the increased risk of bleeding with his low platelet level. The tourniquet was let down for a total tourniquet time of 58 minutes. Hemostasis was assured with use of electrocautery. There was not excessive bleeding, but I did place drains due to his low platelet level and incompletely corrected INR. The extensor mechanism was then closed with a combination of #1 PDS suture and #1 Vicryl suture in [id number] fashion. Extensor mechanism was checked and found to be intact. The subcutaneous tissues were then closed with 2-0 Dexon suture in a buried interrupted fashion. Skin was closed with skin silvia. The leg was then cleaned and dried and a sterile dressing with Xeroform, 4 x 4's, ABD pad, sterile cast padding and Kishore bandage were applied. The patient was brought out of general anesthesia and transferred to the recovery room in stable condition. The patient tolerated the procedure without complications. All needle and sponge counts were correct at the end of the operation. I attest to the content of the Intraoperative Record and any orders documented therein. Any exceptions are noted below. DEEPALI
[2017-03-12] MEDS: RAPAFLO~ORDER AWAITING ACTION SCH (23:45)
[2017-03-13] VITALS (7 sets, daily range): BP systolic 99–136; BP diastolic 55–80; PULSE 100–129; TEMP 36.7–37.4; O2SAT 95–98
[2017-03-13] MEDS: CEFAZOLIN IV 2,000 MG in DEXTROSE 5% 50ML 50 ML IV SCH (01:59)
[2017-03-13] MEDS: HYDROmorphone INJ 0.5 MG/0.5 ML SYR IV PRN ×2 (02:06→08:14)
[2017-03-13] MEDS: ACETAMINOPHEN 500 MG TAB PO SCH ×3 (05:57→20:49)
[2017-03-13 06:00] LABS: HEMATOCRIT 37.8 % (42-52); MEAN CELL VOLUME 96.2 fL (80-100); MEAN CORPUSCULAR HEMOGLOBIN 32.1 pg (25-34); MEAN CORPUSCULAR HGB CONC 33.3 g/dl (32-36); MEAN PLATELET VOLUME 11.4 fL (7.4-10.4); PLATELET COUNT 116 K/uL (130-400); RED BLOOD COUNT 3.93 M/uL (4.7-6.1); WHITE BLOOD COUNT 8.51 K/uL (4.8-10.8)
[2017-03-13 06:09] LABS: INR 1.3 (0.9-1.1); PROTHROMBIN TIME (PATIENT) 13.6 SECONDS (9.0-12.0)
[2017-03-13 06:33] LABS: BUN/CREATININE RATIO 21.2 (10-20); CALCIUM 8.3 mg/dl (8.5-10.1); CREATININE 1.3 mg/dl (0.60-1.40); POTASSIUM 4.5 mmol/L (3.5-5.1)
[2017-03-13] MEDS: RAPAFLO~ORDER AWAITING ACTION SCH ×3 (08:00→22:47)
--- NOTE | 2017-03-13 08:05 | PROGRESS NOTE ---
DATE: 03/13/2017 SUBJECTIVE: 76-year-old gentleman postop day 1 from a left knee replacement. He is doing pretty well. He says he is ready to go home. Pain is controlled. No chest pain or shortness of breath. Not feeling dizzy or lightheaded. OBJECTIVE: VITAL SIGNS: Temperature 36.7. Vital signs stable. Some mild tachycardia intermittently. PHYSICAL EXAMINATION: Examination of the left leg reveals the dressing to be clean, dry, and intact. He can dorsiflex and plantarflex his foot appropriately. He is neurologically intact. LABORATORY DATA: Hemoglobin 12.6. Hematocrit 37.8. Electrolytes are stable. His INR is 1.3. His platelets are actually improved at 116. ASSESSMENT: 76-year-old gentleman postop day 1 from a left knee replacement, doing well. Pain seems to be controlled. Medically seems pretty stable. He is neurologically intact. Platelets actually are increased. INR is subtherapeutic which is to be expected. PLAN: 1. DVT prophylaxis including thigh-high TEDs, SCDs, and he is back on his Coumadin. Also, on a baby aspirin. 2. PT/OT. Weightbearing as tolerated. Left total knee protocol. 3. Pain control, doing well with current pain regimen. 4. Cardiac management as per cardiology. He is back on his Coumadin dose. 5. Disposition: He is hoping to be discharged to home with home health once stable. Will transfer to the orthopedic floor today if okay with cardiology and hopefully discharge tomorrow if medically stable.
[2017-03-13] MEDS: ENALAPRIL MALEATE 10 MG TAB PO SCH ×2 (08:14→20:51)
[2017-03-13] MEDS: DOCUSATE SODIUM 100 MG CAP PO SCH ×2 (08:15→20:50)
[2017-03-13] MEDS: MULTIVITAMIN TAB PO SCH (08:15)
[2017-03-13] MEDS: CARVEDILOL 25 MG TAB PO SCH ×2 (08:15→20:49)
[2017-03-13] MEDS: PANTOprazole SOD 40 MG TAB PO SCH (08:15)
[2017-03-13] MEDS: FUROSEMIDE 20 MG TAB PO SCH (08:15)
[2017-03-13] MEDS: CHECK SCOPOLAMINE PATCH PLACEMENT SCH ×2 (08:16→15:25)
[2017-03-13] MEDS: FERROUS GLUCONATE 324 MG TAB PO SCH ×3 (08:16→16:11)
[2017-03-13] MEDS ORDERED: NON-FORMULARY MEDICATION (Omeprazole (Prilosec) 20 MG) PO SCH (09:00)
--- NOTE | 2017-03-13 10:06 | Anesthesiology Progress Note ---
Anesthesia Post Op Note Date & Time Mar 13, 2017 at 10:00 Vital Signs Pain Intensity: 5 Vital Signs Past 12 Hours Date Time Temp Pulse Resp B/P (MAP) Pulse Ox O2 Delivery O2 Flow Rate FiO2 03/13/17 08:00 36.8 123 18 113/61 (78) 98 Room Air 03/13/17 04:00 98 Nasal Cannula 2.0 03/13/17 04:00 36.7 100 22 119/75 (90) 97 Nasal Cannula 2.0 03/12/17 23:59 98 Nasal Cannula 2.0 03/12/17 23:18 36.8 92 20 113/76 (88) 96 Nasal Cannula 2.0 Notes Mental Status: alert / awake / arousable Pt Amnestic to Procedure: Yes Nausea / Vomiting: adequately controlled Pain: adequately controlled Airway Patency, RR, SpO2: stable & adequate BP & HR: stable & adequate Hydration State: stable & adequate Neuraxial Anesthesia: sensory block resolved Anesthetic Complications: General anesthesia with peripheral nerve block. Pain better. Planning for [facility]
--- NOTE | 2017-03-13 12:17 | Cardiology Follow-Up ---
Subjective Date of Service: Mar 13, 2017. Pt evaluation today including: conversation w/ patient, physical exam, chart review, lab review, review of studies History of Present Illness This morning the patient is having more discomfort at the operative site. He also has a sense of unsteadiness when standing. He appears to be tolerating regular diet. He does not describe any abdominal complaints. He has no difficulty with breathing. Social History Smoking Status: Never Smoker History of Alcohol Use: No Review of Systems Respiratory: + see HPI Cardiac: + see HPI Objective Vital Signs Past 12 Hours Date Time Temp Pulse Resp B/P (MAP) Pulse Ox O2 Delivery O2 Flow Rate FiO2 03/13/17 08:00 36.8 123 18 113/61 (78) 98 Room Air 03/13/17 08:00 98 Room Air 03/13/17 04:00 98 Nasal Cannula 2.0 03/13/17 04:00 36.7 100 22 119/75 (90) 97 Nasal Cannula 2.0 Last Recorded Weight-Kilograms: 95.500 Physical Exam The patient is alert and oriented. Mood and affect appeared normal. He answered all questions appropriately. HEENT: Pupils are equal and reactive to light and accommodation. Extraocular movements are intact. The sclerae are anicteric. Neuro: Cranial nerves intact Neck: Patient's neck is supple. He has palpable carotid pulses bilaterally without bruits on auscultation. There is no evidence of jugular venous distention. The thyroid is not enlarged. Lungs: Clear to auscultation bilaterally. He has good air movement without use of accessory muscles. No rales wheezes or rhonchi. Cardiac: Heart demonstrates an irregular rate and rhythm. Normal S1 and S2. No murmurs on examination. Chest: Well-healed sternotomy scar Pulses: The patient has palpable radial pulses bilaterally that are equal in intensity Extremities: There was no evidence of hypoperfusion. There is no cyanosis or clubbing. There is no edema. Skin: I did not appreciate any rashes on examination today. Two distinct circular surgical lesions on his right upper back Data Laboratory Results: Last 24 Hours Test 03/13/17 05:43 White Blood Count 8.51 K/uL Red Blood Count 3.93 M/uL Hemoglobin 12.6 g/dL Hematocrit 37.8 % Mean Corpuscular Volume 96.2 fL Mean Corpuscular Hemoglobin 32.1 pg Mean Corpuscular Hemoglobin Concent 33.3 g/dl RDW Standard Deviation 45.0 fL RDW Coefficient of Variation 12.9 % Platelet Count 116 K/uL Mean Platelet Volume 11.4 fL Prothrombin Time 13.6 SECONDS Prothromb Time International Ratio 1.3 Sodium Level 141 mmol/L Potassium Level 4.5 mmol/L Chloride Level 108 mmol/L Carbon Dioxide Level 28 mmol/L Anion Gap 5.0 mmol/L Blood Urea Nitrogen 28 mg/dl Creatinine 1.30 mg/dl Est Creatinine Clear Calc Drug Dose 52.5 ml/min Estimated GFR () 60.6 Estimated GFR (Non- 52.3 BUN/Creatinine Ratio 21.2 Random Glucose 132 mg/dl Calcium Level 8.3 mg/dl Telemetry reviewed: Atrial fibrillation with increasing ventricular rates Assessment and Plan 1. Coronary artery disease: No current symptoms. Patient has been resumed on his usual outpatient medical regimen. Hemoglobin seems adequate today. 2. Valvular heart disease: Patient has mild mitral regurgitation. . 3. Atrial fibrillation: High rates today likely related to pain and possibly his volume status. His lung examination is normal. He may benefit from a very small fluid bolus. It is very likely that as his condition improves and his pain control is better his overall heart rates will come down. Will probably watch him on telemetry for the course of the day consider transfer to a non telemetry floor tomorrow based on his heart rates. 4. Ischemic cardiomyopathy: Patient has a severe ischemic cardiomyopathy. He appears to be well compensated currently. His lung examination is normal. He is oxygenating well on room air. I think he could tolerate a very small fluid bolus in the hopes of reducing his overall heart rate.
--- NOTE | 2017-03-13 12:18 | Clinical Documentation Query ---
Albino, I'm not sure why this came to me. As best as I can tell, I've never seen this patient (either as an inpatient or outpatient). It looks like Eduin Freedman is seeing him currently. Hope this helps. Edward CLINICAL DOCUMENTATION QUERY 76-y/o male who has undergone left cemented TKR. He has hx of CAD, Ischemic cardiomyopathy with EF of 20-25%, and CHF. In your clinical opinion is this patient being managed for: ( ) Chronic systolic (reduce EF) CHF in setting of ischemic cardiomyopathy requiring postoperative telemetry monitoring. ( ) Not Agree ( ) Other explanation of clinical findings (Please Explain) ( ) Unable to determine (Please Define) ( ) Need to Discuss The medical record reflects the following clinical findings, treatment, and risk factors. Clinical Indicators: As above. Home diuretic therapy. Treatment: Postoperative telemetry monitoring, I/O's, daily weights, Risk Factors: Age, CAD, Ischemic cardiomyopathy. Please clarify and document your clinical opinion in the progress notes and discharge summary. Terms such as "probable", "suspected", "likely", "questionable", "possible", or "still to be ruled out" are acceptable. IF IN AGREEMENT, YOU MUST DOCUMENT ABOVE DIAGNOSTIC STATEMENT IN DAILY PROGRESS NOTES AND DISCHARGE SUMMARY. This document is not part of the patient's record. Thank You, Albino Shepherd, RN [phone]
--- NOTE | 2017-03-13 12:19 | Clinical Documentation Query ---
CLINICAL DOCUMENTATION QUERY 76-y/o male who has undergone left cemented TKR. He has hx of CAD, Ischemic cardiomyopathy with EF of 20-25%, and CHF. In your clinical opinion is this patient being managed for: ( x ) Chronic systolic (reduce EF) CHF requiring postoperative telemetry monitoring ( ) Not Agree ( ) Other explanation of clinical findings (Please Explain) ( ) Unable to determine (Please Define) ( ) Need to Discuss The medical record reflects the following clinical findings, treatment, and risk factors. Clinical Indicators: As above. Home diuretic therapy. Treatment: Postoperative telemetry monitoring, I/O's, daily weights, Risk Factors: Age, CAD, Ischemic cardiomyopathy. Please clarify and document your clinical opinion in the progress notes and discharge summary. Terms such as "probable", "suspected", "likely", "questionable", "possible", or "still to be ruled out" are acceptable. IF IN AGREEMENT, YOU MUST DOCUMENT ABOVE DIAGNOSTIC STATEMENT IN DAILY PROGRESS NOTES AND DISCHARGE SUMMARY. This document is not part of the patient's record. Thank You, Albino Shepherd, RN [phone]
[2017-03-13] MEDS ORDERED: SODIUM CHLORIDE 0.9% 250ML 250 ML IV ONE ×2 (12:30→13:30)
[2017-03-13] MEDS: TAMSULOSIN HCL 0.4 MG CAP PO PRN (13:56)
[2017-03-13] MEDS: TRAMADOL HCL 50 MG TAB PO PRN (13:58)
[2017-03-13] MEDS ORDERED: WARFARIN SOD 6 MG TAB PO ONE (16:00)
[2017-03-13] MEDS: ASPIRIN 81 MG ECTAB PO SCH (20:49)
[2017-03-13] MEDS: SIMVASTATIN 10 MG TAB PO SCH (20:50)
[2017-03-13] MEDS: SENNA 8.6 MG TAB PO SCH (20:50)
[2017-03-14] VITALS (9 sets, daily range): BP systolic 91–107; BP diastolic 58–71; PULSE 50–122; TEMP 36.5–37; O2SAT 91–98
[2017-03-14] MEDS: TRAMADOL HCL 50 MG TAB PO PRN ×2 (03:28→08:37)
[2017-03-14] MEDS: ACETAMINOPHEN 500 MG TAB PO SCH ×3 (06:02→21:42)
[2017-03-14 06:28] LABS: INR 1.5 (0.9-1.1); PROTHROMBIN TIME (PATIENT) 16.1 SECONDS (9.0-12.0)
[2017-03-14] MEDS: RAPAFLO~ORDER AWAITING ACTION SCH ×2 (08:00→15:53)
[2017-03-14] MEDS: ENALAPRIL MALEATE 10 MG TAB PO SCH ×2 (08:38→21:42)
[2017-03-14] MEDS: DOCUSATE SODIUM 100 MG CAP PO SCH ×2 (08:38→21:41)
[2017-03-14] MEDS: FERROUS GLUCONATE 324 MG TAB PO SCH ×4 (08:38→17:51)
[2017-03-14] MEDS: PANTOprazole SOD 40 MG TAB PO SCH (08:39)
[2017-03-14] MEDS: MULTIVITAMIN TAB PO SCH (08:39)
[2017-03-14] MEDS: FUROSEMIDE 20 MG TAB PO SCH (08:39)
[2017-03-14] MEDS: CARVEDILOL 25 MG TAB PO SCH ×2 (08:39→21:41)
[2017-03-14] MEDS: TAMSULOSIN HCL 0.4 MG CAP PO PRN (08:39)
--- NOTE | 2017-03-14 09:14 | Cardiology Follow-Up ---
Subjective Date of Service: Mar 14, 2017. History of Present Illness Patient claims to have an uneventful evening. He continues to have significant knee discomfort. He was up on his feet for brief period yesterday. His unsteadiness is improved. The he did not report any dizziness. He has no symptoms of dyspnea or breathing difficulty. He did not describe chest pain or sense of arrhythmia. Social History Smoking Status: Never Smoker History of Alcohol Use: No Review of Systems Respiratory: + see HPI Cardiac: + see HPI Objective Vital Signs Past 12 Hours Date Time Temp Pulse Resp B/P (MAP) Pulse Ox O2 Delivery O2 Flow Rate FiO2 03/14/17 04:00 97 Room Air 03/14/17 03:30 37.0 121 18 91/61 (71) 96 Room Air 03/13/17 23:59 97 Room Air 03/13/17 23:59 37.4 129 18 99/68 (78) 95 Room Air Last Recorded Weight-Kilograms: 95.500 Physical Exam The patient is alert and oriented. Mood and affect appeared normal. He answered all questions appropriately. HEENT: Pupils are equal and reactive to light and accommodation. Extraocular movements are intact. The sclerae are anicteric. Neuro: Cranial nerves intact Neck: Patient's neck is supple. He has palpable carotid pulses bilaterally without bruits on auscultation. There is no evidence of jugular venous distention. The thyroid is not enlarged. Lungs: Clear to auscultation bilaterally. He has good air movement without use of accessory muscles. No rales wheezes or rhonchi. Cardiac: Heart demonstrates an irregular rate and rhythm. Normal S1 and S2. No murmurs on examination. Chest: Well-healed sternotomy scar Pulses: The patient has palpable radial pulses bilaterally that are equal in intensity Extremities: There was no evidence of hypoperfusion. There is no cyanosis or clubbing. There is no edema. Skin: I did not appreciate any rashes on examination today. Two distinct circular surgical lesions on his right upper back Data Laboratory Results: Last 24 Hours Test 03/14/17 05:58 Prothrombin Time 16.1 SECONDS Prothromb Time International Ratio 1.5 Imaging: EKG: Telemetry reviewed: Assessment and Plan 1. Coronary artery disease: No current symptoms. Patient has been resumed on his usual outpatient medical regimen. Hemoglobin seems adequate again today. 2. Valvular heart disease: Patient has mild mitral regurgitation. . 3. Atrial fibrillation: His rates are better today. I think this is most likely related to some minor volume shifts and discomfort from his operation. I will continue on his current medical regimen. I would expect these heart rates to improve as his recovery progresses.. 4. Ischemic cardiomyopathy: Patient has a severe ischemic cardiomyopathy. He appears to be well compensated currently. His lung examination is normal. He is oxygenating well on room air. We can continue his outpatient regimen of beta blockade, Kishore inhibition and low-dose diuretic. His overall urine output has been slightly low, but he will likely mobilize some fluids here shortly. Patient is certainly stable for transport out of the intensive care unit to a non-monitored bed.
--- NOTE | 2017-03-14 13:50 | PROGRESS NOTE ---
DATE: 03/14/2017 DATE: 03/14/2017 SUBJECTIVE: A 76-year-old gentleman postop day 2 from a left knee replacement. He was still in the ICU when I saw him this morning. He has now been transferred to the floor. He says his pain is controlled. No chest pain or shortness of breath. Not feeling dizzy or lightheaded. OBJECTIVE: VITAL SIGNS: Temperature 36.5. Vital signs are stable. He was tachycardic earlier but seems to have resolved. EXTREMITIES: Examination of the left leg reveals it to be well aligned. Just a little bit of bloody drainage inferiorly. Some moderate swelling. He is neurologically intact. LABORATORY DATA: INR is 1.5. ASSESSMENT: A 76-year-old gentleman postop day 2 from a left knee replacement. He has got multiple underlying medical issues. He has been fairly tachycardic, but his heart rate slowed down and he has been transferred out of the unit by cardiology. He is feeling well. He is neurologically intact. PLAN: 1. DVT prophylaxis including thigh-high TEDs, SCDs, and Coumadin. He is back on his normal dose of Coumadin starting today. 2. PT/OT. Weightbearing as tolerated. Left total knee protocol. 3. Pain control. Doing well with current pain regimen. We are going to have to really limit his narcotics to avoid confusion. 4. Disposition. He is hoping to be discharged to home. The patient is anxious to get home, but I think we need to observe him another day to make sure his cardiac status is stable.
[2017-03-14] MEDS: WARFARIN SOD 4 MG TAB PO SCH (16:42)
[2017-03-14] MEDS: SENNA 8.6 MG TAB PO SCH (21:00)
[2017-03-14] MEDS: ASPIRIN 81 MG ECTAB PO SCH (21:41)
[2017-03-14] MEDS: SIMVASTATIN 10 MG TAB PO SCH (21:42)
[2017-03-14] MEDS ORDERED: ACET-24 PO (22:03)
[2017-03-14] MEDS ORDERED: ULT50X PO (22:03)
--- NOTE | 2017-03-14 22:06 | Discharge Instructions ---
Discharge Instructions Date of Service Mar 14, 2017. Admission Reason for Admission: Left Knee Degenerative Joint Disease Discharge Discharge Diagnosis / Problem: Left Knee Replacement Discharge Goals Goal(s): Decrease discomfort, Improve function, Increase independence, Improve disease control, Therapeutic intervention Activity Recommendations Activity Level: Assistance Required Therapies: Physical Therapy, Occupational Therapy Weightbearing Status: Left weightbearing . Additional Information Patient informed of condition: Yes Advance Directives: Yes DNR: No Level of Care: Acute Rehab Communicable Disease: No Prognosis: Improving Instructions / Follow-Up Instructions / Follow-Up ACTIVITY RECOMMENDATIONS: Physical Therapy: * You will go to physical therapy three times each week for four to six weeks after your surgery in order to regain your knee range of motion and to retrain your knee to work properly. * It is just as important to make sure you are getting your knee perfectly straight as it is to regain your knee bend. * Taking a pain pill an hour before therapy can help you have a more productive and comfortable therapy session. Home Exercise: * You were shown a series of exercises (heel props, heel slides, etc.) in the hospital. Do these exercises three to four times each day including the exercises you were shown in physical therapy. Walking: * Get up and walk several times each day. For the first four weeks, try not to stand or walk for more than one hour at a time. If you do stand or walk for more than one hour, you will not hurt anything, but your knee and leg will likely swell. * As you feel comfortable, you may change from the walker or crutches to a cane and then to independent walking. MEDICATIONS: New Medicine: * You will likely be taking one or more of these medications: 1. Tramadol - A quick and shorter-acting pain medication. Take one to two tablets every four to six hours to lessen your pain. 2. Iron Sulfate - Take three times each day for the month after surgery to help you replace the blood lost during surgery. 3. Coumadin - Thins your blood to lessen the chance of forming a blood clot. * The most common side effects of pain medicine and iron are nausea and constipation. If nausea or constipation is too much of a problem or if you have any questions about your new medicines or doses, call [facility] at . We will try to help you manage these issues. VERY IMPORTANT TO READ AND REVIEW" Pain: * The immediate post-operative period after knee replacement surgery is often quite painful. * You are given a prescription for pain medicine. You should take it, as directed, when you need it, especially before physical therapy and before going to bed. Pain that interferes with sleep is very common and can last several months. * You will likely need pain medicine for the first four to six weeks. It will not stop all of the pain. The pain will lessen and as you feel better, you may change to milder pain medicine such as Tylenol. * The most common side effects of pain medicine are nausea and constipation, so don't take more than you need. SPECIAL CARE INSTRUCTIONS: TEDs/Elastic Stockings: * The white elastic stockings help limit swelling and prevent blood clots from forming in your legs. The more you wear them, the more they work. * Wear them for six weeks after knee replacement surgery and four weeks after partial knee replacement. Prevention of Infection: * Take antibiotics one hour before any dental cleaning, dental work, urological procedure, gastrointestinal procedure or any invasive surgery in order to prevent your new joint from getting infected. * You may get the antibiotics from the doctor performing the procedure or you may call our office at before and we will call in a prescription to the pharmacy of your choice. Things to Watch For: * Drainage from the incision site that occurs more than one week after your surgery. * Severely increased knee/leg pain or swelling. * Increased redness at the incision site. * Fever above 102 degrees Fahrenheit. * Unusual chest pain or shortness of breath. * Unusual pain or burning with urination. Call [facility] at with any of the above problems or if you have any questions about your medicines or recovery. FOLLOW UP VISIT: Make an appointment to see your doctor for approximately two weeks after surgery for a progress check and staple removal by calling the office at . Current Hospital Diet Patient's current hospital diet: Regular Diet Discharge Diet Recommended Diet: Regular Diet Procedures Procedures Performed: Left Total Knee Arthroplasty Pending Studies Studies pending at discharge: no Medical Emergencies . Who to Call and When: Medical Emergencies: If at any time you feel your situation is an emergency, please call 120 immediately. . Non-Emergent Contact Non-Emergency issues call your: Surgeon . . "Provider Documentation" section prepared by Rolf Mayer. . Core Measure Problem Core Measures: None
--- NOTE | 2017-03-14 22:08 | Discharge Instructions ---
Discharge Instructions Date of Service Mar 14, 2017. Admission Reason for Admission: Left Knee Degenerative Joint Disease Discharge Discharge Diagnosis / Problem: Left Knee Replacement Discharge Goals Goal(s): Decrease discomfort, Improve function, Increase independence, Improve disease control, Therapeutic intervention Activity Recommendations Activity Limitations: per Instructions/Follow-up section . Instructions / Follow-Up Instructions / Follow-Up ACTIVITY RECOMMENDATIONS: Physical Therapy: * You will go to physical therapy three times each week for four to six weeks after your surgery in order to regain your knee range of motion and to retrain your knee to work properly. * It is just as important to make sure you are getting your knee perfectly straight as it is to regain your knee bend. * Taking a pain pill an hour before therapy can help you have a more productive and comfortable therapy session. Home Exercise: * You were shown a series of exercises (heel props, heel slides, etc.) in the hospital. Do these exercises three to four times each day including the exercises you were shown in physical therapy. Walking: * Get up and walk several times each day. For the first four weeks, try not to stand or walk for more than one hour at a time. If you do stand or walk for more than one hour, you will not hurt anything, but your knee and leg will likely swell. * As you feel comfortable, you may change from the walker or crutches to a cane and then to independent walking. MEDICATIONS: New Medicine: * You will likely be taking one or more of these medications: 1. Tramadol - A long-acting pain medication. Take 1 tablet twice a day for the first ten days to decrease your baseline level of pain. 2. Iron Sulfate - Take three times each day for the month after surgery to help you replace the blood lost during surgery. 3. Coumadin - Thins your blood to lessen the chance of forming a blood clot. * The most common side effects of pain medicine and iron are nausea and constipation. If nausea or constipation is too much of a problem or if you have any questions about your new medicines or doses, call [facility] at [phone]. We will try to help you manage these issues. VERY IMPORTANT TO READ AND REVIEW" Pain: * The immediate post-operative period after knee replacement surgery is often quite painful. * You are given a prescription for pain medicine. You should take it, as directed, when you need it, especially before physical therapy and before going to bed. Pain that interferes with sleep is very common and can last several months. * You will likely need pain medicine for the first four to six weeks. It will not stop all of the pain. The pain will lessen and as you feel better, you may change to milder pain medicine such as Tylenol. * The most common side effects of pain medicine are nausea and constipation, so don't take more than you need. SPECIAL CARE INSTRUCTIONS: TEDs/Elastic Stockings: * The white elastic stockings help limit swelling and prevent blood clots from forming in your legs. The more you wear them, the more they work. * Wear them for six weeks after knee replacement surgery and four weeks after partial knee replacement. Prevention of Infection: * Take antibiotics one hour before any dental cleaning, dental work, urological procedure, gastrointestinal procedure or any invasive surgery in order to prevent your new joint from getting infected. * You may get the antibiotics from the doctor performing the procedure or you may call our office at before and we will call in a prescription to the pharmacy of your choice. Things to Watch For: * Drainage from the incision site that occurs more than one week after your surgery. * Severely increased knee/leg pain or swelling. * Increased redness at the incision site. * Fever above 102 degrees Fahrenheit. * Unusual chest pain or shortness of breath. * Unusual pain or burning with urination. Call [facility] at with any of the above problems or if you have any questions about your medicines or recovery. FOLLOW UP VISIT: Make an appointment to see your doctor for approximately two weeks after surgery for a progress check and staple removal by calling the office at . Current Hospital Diet Patient's current hospital diet: Regular Diet Discharge Diet Recommended Diet: Regular Diet Procedures Procedures Performed: Left Total Knee Arthroplasty Pending Studies Studies pending at discharge: no Medical Emergencies . Who to Call and When: Medical Emergencies: If at any time you feel your situation is an emergency, please call [phone] immediately. . Non-Emergent Contact Non-Emergency issues call your: Surgeon . "Provider Documentation" section prepared by Rolf Mayer. . VTE Core Measure Inpt VTE Proph given/why not?: Warfarin (Coumadin), Zoraida Mcintyre, SCD's
[2017-03-15 04:59] LABS: INR 1.6 (0.9-1.1)
[2017-03-15 05:06] LABS: BUN/CREATININE RATIO 25.6 (10-20); CALCIUM 8.5 mg/dl (8.5-10.1); CREATININE 1.2 mg/dl (0.60-1.40); POTASSIUM 4.6 mmol/L (3.5-5.1)
[2017-03-15 05:09] LABS: HEMATOCRIT 27.1 % (42-52); MEAN CELL VOLUME 95.1 fL (80-100); MEAN CORPUSCULAR HGB CONC 34.7 g/dl (32-36); MEAN PLATELET VOLUME 11.7 fL (7.4-10.4); PLATELET COUNT 100 K/uL (130-400); RED BLOOD COUNT 2.85 M/uL (4.7-6.1); WHITE BLOOD COUNT 9.19 K/uL (4.8-10.8)
[2017-03-15] MEDS: ACETAMINOPHEN 500 MG TAB PO SCH ×2 (05:42→13:35)
[2017-03-15 07:17] VITALS: BP 97/60; PULSE 97; TEMP 37.3; O2SAT 96
--- NOTE | 2017-03-15 07:53 | PROGRESS NOTE ---
DATE: 03/15/2017 SUBJECTIVE: 76-year-old gentleman postop day 3 from a left knee replacement. He is now up on the floor. He seems more awake, alert and oriented this morning. He says his pain is very controlled and manageable. No chest pain or shortness of breath. Not feeling dizzy or lightheaded. OBJECTIVE: VITAL SIGNS: Temperature 37.3. Vital signs stable. Heart rate 97. PHYSICAL EXAMINATION: GENERAL: Reveals a pleasant elderly male. He is sitting up in bed. He is much more awake, alert and appropriate this morning. EXTREMITIES: Examination of the left leg reveals some moderate swelling. No significant drainage. He can dorsiflex and plantarflex his foot appropriately. He is neurologically intact. LABORATORY DATA: Hemoglobin 9.4. Hematocrit 27.1. Platelet count is 100. INR is 1.6. Electrolytes are stable. ASSESSMENT: 76-year-old gentleman with significant cardiac disease, postop day 3 from a left knee replacement, doing reasonably well. He seems much better today. His heart rate is better controlled. His pain is controlled. PLAN: 1. DVT prophylaxis including thigh-high TEDs, SCDs, and back on Coumadin. 2. PT/OT. Weight bear as tolerated. Left total knee protocol. 3. Pain control, doing pretty well with current pain regimen. 4. Disposition: He is hoping to be discharged to rehab for a brief rehab stay. If not likely go home with outpatient therapy.
[2017-03-15 08:00] VITALS: O2SAT 96
[2017-03-15] MEDS: RAPAFLO~ORDER AWAITING ACTION SCH ×3 (08:00→15:49)
--- NOTE | 2017-03-15 08:57 | Cardiology Follow-Up ---
Subjective Date of Service: Mar 15, 2017. Pt evaluation today including: conversation w/ patient, physical exam, chart review, lab review, review of studies, review of inpatient medication list History of Present Illness This morning he claims to be feeling well. He still has some discomfort at the operative site which is improving. He denies significant breathing trouble. He denies any dizziness or lightheadedness. He has not had any symptoms of chest pain. He is not aware of any palpitations. Social History Smoking Status: Never Smoker History of Alcohol Use: No Review of Systems Respiratory: + see HPI Cardiac: + see HPI Objective Vital Signs Past 12 Hours Date Time Temp Pulse Resp B/P (MAP) Pulse Ox O2 Delivery O2 Flow Rate FiO2 03/15/17 08:00 96 Room Air 03/15/17 07:17 37.3 97 17 97/60 (72) 96 Room Air 03/15/17 00:00 Room Air 03/14/17 23:15 37.0 109 18 99/58 (72) 96 Room Air 03/14/17 21:33 107/68 (81) 03/14/17 21:21 106/61 (76) 03/14/17 21:16 122 100/61 (74) Last Recorded Weight-Kilograms: 95.500 Physical Exam The patient is alert and oriented. Mood and affect appeared normal. He answered all questions appropriately. HEENT: Pupils are equal and reactive to light and accommodation. Extraocular movements are intact. The sclerae are anicteric. Neuro: Cranial nerves intact Neck: Patient's neck is supple. He has palpable carotid pulses bilaterally without bruits on auscultation. There is no evidence of jugular venous distention. The thyroid is not enlarged. Lungs: Clear to auscultation bilaterally. He has good air movement without use of accessory muscles. No rales wheezes or rhonchi. Cardiac: Heart demonstrates an irregular rate and rhythm. Normal S1 and S2. No murmurs on examination. Chest: Well-healed sternotomy scar Pulses: The patient has palpable radial pulses bilaterally that are equal in intensity Extremities: There was no evidence of hypoperfusion. There is no cyanosis or clubbing. There is no edema. Skin: I did not appreciate any rashes on examination today. Two distinct circular surgical lesions on his right upper back Data Laboratory Results: Last 24 Hours Test 9/29/17 04:38 White Blood Count 9.19 K/uL Red Blood Count 2.85 M/uL Hemoglobin 9.4 g/dL Hematocrit 27.1 % Mean Corpuscular Volume 95.1 fL Mean Corpuscular Hemoglobin 33.0 pg Mean Corpuscular Hemoglobin Concent 34.7 g/dl RDW Standard Deviation 45.5 fL RDW Coefficient of Variation 13.1 % Platelet Count 100 K/uL Mean Platelet Volume 11.7 fL Prothrombin Time 18.0 SECONDS Prothromb Time International Ratio 1.6 Sodium Level 140 mmol/L Potassium Level 4.6 mmol/L Chloride Level 108 mmol/L Carbon Dioxide Level 27 mmol/L Anion Gap 5.0 mmol/L Blood Urea Nitrogen 31 mg/dl Creatinine 1.20 mg/dl Est Creatinine Clear Calc Drug Dose 56.9 ml/min Estimated GFR () 66.7 Estimated GFR (Non- 57.6 BUN/Creatinine Ratio 25.6 Random Glucose 106 mg/dl Calcium Level 8.5 mg/dl Assessment and Plan 1. Coronary artery disease: No current symptoms. Patient has been resumed on his usual outpatient medical regimen. His hemoglobin is down slightly today. He has no symptoms suggestive of coronary insufficiency or angina. He can be monitored for the symptoms as he becomes more ambulatory. 2. Valvular heart disease: Patient has mild mitral regurgitation. . 3. Atrial fibrillation: Overall heart rates appear to be improving. He will likely have higher heart rates with activity for period of time. I think his heart rates will continue to improve as he recovers from his surgery and becomes more active. He will also resolve some of the fluid shifts associated with his surgery. This point would seem reasonable continue on his usual outpatient medical regimen for atrial fibrillation. He has been restarted on his warfarin. 4. Ischemic cardiomyopathy: Patient has a severe ischemic cardiomyopathy. He appears to be well compensated currently. His lung examination is normal. He is oxygenating well on room air. Patient appears to be stable from a cardiac standpoint.
[2017-03-15 09:34] VITALS: BP 105/71; PULSE 96
[2017-03-15] MEDS: FERROUS GLUCONATE 324 MG TAB PO SCH ×2 (09:37→12:13)
[2017-03-15] MEDS: MULTIVITAMIN TAB PO SCH (09:38)
[2017-03-15] MEDS: FUROSEMIDE 20 MG TAB PO SCH (09:38)
[2017-03-15] MEDS: CARVEDILOL 25 MG TAB PO SCH (09:39)
[2017-03-15] MEDS: PANTOprazole SOD 40 MG TAB PO SCH (09:39)
[2017-03-15] MEDS: DOCUSATE SODIUM 100 MG CAP PO SCH (09:40)
[2017-03-15] MEDS: ENALAPRIL MALEATE 10 MG TAB PO SCH (09:40)
[2017-03-15] MEDS: TRAMADOL HCL 50 MG TAB PO PRN (13:44)
[2017-03-15 15:06] VITALS: BP 102/73; PULSE 100; TEMP 36.8; O2SAT 97
[2017-03-15] MEDS: WARFARIN SOD 4 MG TAB PO SCH (15:49)
--- NOTE | 2017-03-19 00:08 | DISCHARGE SUMMARY ---
ADMITTING PHYSICIAN AND SURGEON: Dr. Mayer. ADMITTING DIAGNOSIS: Left knee degenerative joint disease. SURGERY PERFORMED: Left total knee arthroplasty. CONSULTS: Dr. Underwood for cardiology. HISTORY AND PHYSICAL EXAMINATION: Well documented in the patient's chart. HOSPITAL COURSE: The patient admitted on 03/12/2017 underwent total knee arthroplasty, tolerated the procedure well, there were no complications and transferred to the PACU postoperatively and later to the ICU for further care. On postop day #2, he was transferred to the orthopedic floor, nontelemetry unit for continued care. He did receive Ancef postoperatively for antibiotic prophylaxis, BRIDGET stockings, SCDs and Coumadin for DVT prophylaxis. INR was monitored daily and Coumadin dosed accordingly. Hemoglobin, hematocrit and vital signs were monitored during his hospital stay and remained stable. He developed some postoperative anemia but did not require any blood transfusions. He did have some tachycardia postoperatively and he was followed by the cardiology service throughout his hospital stay, there were no complications. By postoperative day #3, he was tolerating a regular diet. Pain was controlled with oral pain medicine. He was participating in physical therapy and had no signs or symptoms of deep vein thrombosis. On postop day #3, he was transferred to rehab facility, he was given printed discharge instructions including new prescriptions for extra strength Tylenol, tramadol. Continue his home medicines with the exception of his home dose of [place], which was stopped. He will continue Coumadin for DVT prophylaxis, BRIDGET stockings. Continue physical therapy, weightbearing as tolerated and will follow up in 10-12 days or sooner if there are any problems or concerns.
== END 2017-03-15 16:55 | disposition home health service (06) | DRG 470 ==
LOC: C.ACU 06:22 → C.MSICU 06:40 → ENRESERV 11:47 → CANRESERV 03-13 08:34 → CANBEDREQ 03-13 09:43 → EDBEDREQSVC 03-14 09:29 → ENRESERV 03-14 11:00 → C.MSN 03-14 11:33
PROVIDERS: ADMIT Orthopaedic Surgery Sports Medicine; ATTEND Orthopaedic Surgery Sports Medicine
PROC: 03HY32Z Insertion of Monitoring Device into Upper Artery, Percutaneous Approach (ICD-10-PCS; 2017-03-12)
PROC: 0SRD0J9 Replacement of Left Knee Joint with Synthetic Substitute, Cemented, Open Approach (ICD-10-PCS; principal; 2017-03-12 08:50)
DX: M17.12 Unilateral primary osteoarthritis, left knee (principal); I25.10 Atherosclerotic heart disease of native coronary artery without angina pectoris; I25.5 Ischemic cardiomyopathy; I48.2 Chronic atrial fibrillation; I11.0 Hypertensive heart disease with heart failure; I50.9 Heart failure, unspecified; D47.2 Monoclonal gammopathy; E78.00 Pure hypercholesterolemia, unspecified; K21.9 Gastro-esophageal reflux disease without esophagitis; N40.0 Benign prostatic hyperplasia without lower urinary tract symptoms; Z95.1 Presence of aortocoronary bypass graft; Z85.820 Personal history of malignant melanoma of skin; Z90.49 Acquired absence of other specified parts of digestive tract; Z79.01 Long term (current) use of anticoagulants; Z79.82 Long term (current) use of aspirin; Z79.891 Long term (current) use of opiate analgesic; Z79.899 Other long term (current) drug therapy; Z82.49 Family history of ischemic heart disease and other diseases of the circulatory system

== ENCOUNTER → 2017-03-21 | Outpatient (CLI) | payer OTHER ==
[~2017-03-21] MED LIST changes: +ACET-24 PO; -ACETAMINOPHEN 500 MG TAB PO SCH; -BUPIVACAINE LIPOSOME 266 MG, BUPIVACAINE/EPINEPHRINE INJ 50 ML, SODIUM CHLORIDE 0.9% PF... INFIL SCH; -CEFAZOLIN 2000 MG/60 ML D5W 60 ML IV SCH; -FAMOTIDINE 20 MG TAB PO SCH; -GABAPENTIN 300 MG CAP PO SCH; -HYDR-5688 PO; -LACTATED RINGER'S 1000ML 1,000 ML IV SCH; -LACTATED RINGER'S 1000ML 500 ML IV ONE; -LACTATED RINGER'S 1000ML IV SCH; -METOCLOPRAMIDE HCL 10 MG TAB PO SCH; -SCOPOLAMINE 1.5 MG TDSY TD SCH; -TRANEXAMIC ACID INJ 1,000 MG in SODIUM CHLORIDE 0.9% 100ML 100 ML IV SCH; +ULT50X PO
[2017-03-21 09:53] LABS: PROTHROMBIN TIME (PATIENT) 22.2 SECONDS (9.0-12.0)
== END | disposition home or self-care (01) ==
LOC: C.LABSPEC 09:09
PROVIDERS: ATTEND Orthopaedic Surgery Sports Medicine
DX: Z51.81 Encounter for therapeutic drug level monitoring (principal); Z79.01 Long term (current) use of anticoagulants

== ENCOUNTER → 2017-03-28 | Outpatient (CLI) | payer OTHER ==
[2017-03-28 12:54] LABS: INR 1.8 (0.9-1.1); PROTHROMBIN TIME (PATIENT) 20.1 SECONDS (9.0-12.0)
== END | disposition home or self-care (01) ==
LOC: C.LABSPEC 12:04
PROVIDERS: ATTEND Orthopaedic Surgery Sports Medicine
DX: I48.91 Unspecified atrial fibrillation (principal)

== ENCOUNTER → 2017-05-06 | Outpatient (CLI) | payer OTHER | END | disposition home or self-care (01) | LOC: C.LAB 12:04 | PROVIDERS: ATTEND Urology | DX: N40.0 Benign prostatic hyperplasia without lower urinary tract symptoms (principal) ==